=== PATIENT | female | born 1995 | race African-American/Black ===

== ENCOUNTER 2018-01-28 22:23 | Emergency (ER) | payer OTHER ==
[~2018-01-28] VITALS: Ht 162.6 cm; Wt 53.5 kg
[2018-01-28] MEDS ORDERED: ONDANSETRON IV *ER 4 MG/2 ML VIAL IV ONE (22:43)
[2018-01-28] MEDS ORDERED: IV NS 1000 ML 1,000 ML IV ONE (22:45)
[2018-01-28 23:06] LABS: BASOPHILS % (AUTO) 0.4 % (0.0-2.0); EOSINOPHILS % (AUTO) 0.1 % (0.0-7.0); HEMATOCRIT 36.8 % (31.2-41.9); LYMPHOCYTES # (AUTO) 1.6 K/uL (20.0-40.0); LYMPHOCYTES % (AUTO) 12.9 % (20.5-51.5); MEAN CORPUSCULAR HGB CONC 35 g/dL (32.3-35.6); MEAN CORPUSCULAR VOLUME 93.8 fL (75.5-95.3); MONOCYTES # (AUTO) 0.8 K/uL (2.0-10.0); MONOCYTES % (AUTO) 6.2 % (0.0-11.0); NEUTROPHILS # (AUTO) 10.2 K/uL (1.8-8.9); NEUTROPHILS % (AUTO) 80.4 % (38.5-71.5); PLATELET COUNT (AUTO) 223 K/uL (179-408); RED BLOOD CELL COUNT(AUTO) 3.92 MIL/uL (3.63-4.92); WHITE BLOOD COUNT (AUTO) 12.7 K/uL (3.8-11.8)
[2018-01-28] MEDS ORDERED: ONDANSETRON 4 MG/2 ML VIAL ONE (23:06)
[2018-01-28 23:15] LABS: CREATININE 0.9 mg/dL (0.6-1.3); POTASSIUM 3.9 mmol/L (3.5-5.1)
[2018-01-28 23:21] LABS: TOTAL PROTEIN, SERUM 7.6 g/dL (6.4-8.2)
--- NOTE | 2018-01-28 23:30 | NUR ---
PT IN BED. PT'S MOTHER AT BEDSIDE. PT RESTING QUIETLY IN BED RECEIVING IV FLUIDS. PT REQUESTING PAIN MEDS. MADE AWARE.
[2018-01-28] MEDS ORDERED: KETOROLAC TROMETHAMINE 30 MG INJ IVP ONE (23:39)
[2018-01-28] MEDS ORDERED: KETOROLAC TROMETHAMINE 30 MG INJ ONE (23:42)
[2018-01-29 00:31] LABS: *BILIRUBIN,URIN NEGATIVE (NEGATIVE); *BLOOD, URINE NEGATIVE (NEGATIVE); *CLARITY,URINE CLOUDY (CLEAR); *COLOR,URINE YELLOW (YELLOW); *KETONES,URINE 1+ (NEGATIVE); *PROTEIN,URINE 1+ (NEGATIVE); *UROBILINOGEN,URINE 0.2 E.U./dl (NORMAL); LEUKOCYTE ESTERASE ,URINE NEGATIVE (NEGATIVE); NITRITE, URINE NEGATIVE (NEGATIVE); UGLUCOSE NEGATIVE (NEGATIVE)
[2018-01-29 00:35] LABS: *URINE HCG, QUAL NEGATIVE (NEGATIVE)
[2018-01-29 00:37] LABS: RBC,URINE 0-3 /HPF (0-3); WBC,URINE 0-3 /HPF (0-3)
[2018-01-29 00:38] LABS: BACTERIA,URINE MODERATE /HPF (NONE SEEN); MUCUS,URINE MANY /LPF (0-FEW); SQUAMOUS EPITHELIAL CELL,UR MANY /HPF (NONE SEEN)
--- NOTE | 2018-01-29 02:00 | NUR ---
Patient discharged to home in stable conditon. Written and verbal after care instructions given. Patient verbalizes understanding of instructions. Patient reported a reduced level of pain and nausea prior to discharge. Patient able to ambulate unassisted with steady gait. Peripheral IV was removed. Patient left with all personal belongings.
[2018-01-29 02:19] VITALS: BP 95/42
== END 2018-01-29 02:00 | disposition home or self-care (01) ==
LOC: ER 22:26
DX: R11.2 Nausea with vomiting, unspecified (principal); D72.829 Elevated white blood cell count, unspecified
CPT/HCPCS: 36415; 84703; 85025; A4663; J1885; J2405; J7030

== ENCOUNTER 2018-11-03 12:00 | Emergency (ER) | payer BC, OTHER ==
[~2018-11-03] VITALS: Ht 162.6 cm; Wt 54.4 kg
--- NOTE | 2018-11-03 13:10 | NUR ---
Patient discharged to home in stable conditon. Written and verbal after care instructions given. Patient verbalizes understanding of instructions.
== END 2018-11-03 13:37 | disposition home or self-care (01) ==
LOC: ER 12:00
DX: J40 Bronchitis, not specified as acute or chronic (principal)
CPT/HCPCS: 71045; A4663